=== PATIENT | female | born 1945 | race Caucasian/White ===

== ENCOUNTER → 2016-12-05 | Day surgery (SDC) | payer OTHER ==
[~2016-12-05] MED LIST: BUPIVACAINE HCL PF 0.5% 30 ML VIAL ONE; LACTATED RINGER'S 1000 ML INJ 1,000 ML ONE; ONDANSETRON HCL 4 MG/2 ML VIAL IV PUSH ONE; PROPOFOL 200 MG/20 ML AMP IV ONE; ceFAZolin INJ 1,000 MG VIAL ONE
--- NOTE | 2016-12-06 07:29 | MP ---
cc: ALEKSEY NAVARRO DATE OF SURGERY 12/05/2016 PREOPERATIVE DIAGNOSIS Right olecranon fracture status post open reduction internal fixation with retained painful hardware. POSTOPERATIVE DIAGNOSES Right olecranon fracture status post open reduction internal fixation with retained painful hardware. PROCEDURE Removal of deep hardware right elbow. SURGEON Dr. Aleksey Navarro [employer] ANTOINE Yusuf ANESTHESIA General ESTIMATED BLOOD LOSS Less than 50 cc TOURNIQUET TIME 0 minutes COMPLICATIONS None JUSTIFICATION This patient is a 71-year-old female who sustained a previous injury to the right elbow with a displaced fracture of the olecranon. She underwent prior surgical open reduction, internal fixation. She has shown radiographic and clinical signs of healing, but complains of pain and prominence of the deep hardware. The patient was counseled as to the risks, benefits and alternatives to the above-named proposed surgical procedure. She did wish to proceed with surgery. PROCEDURE IN DETAIL A written consent was obtained. The patient identified, taken to the operating room, placed supine on the operating room table. General anesthesia was administered, as well as one gram of IV Ancef. The right upper tree prepped and draped using Isopropyl alcohol, Hibiclens solution and DuraPrep solution. After the appropriate time-out was performed, a longitudinal incision made over the posterior aspect the right elbow in line with the prior incision. Soft tissue was elevated off the deep [id number] tension band construct. Wire cutters were used to cut the tension band construct and all deep hardware was subsequently removed. The wound was thoroughly irrigated with sterile saline solution. Fluoroscopic imaging showed complete removal of hardware. The fracture appeared stable. The triceps tendon was repaired primarily with 0 Vicryl suture, subcutaneous layer with 3-0 Vicryl suture and skin was closed with Dermabond. A sterile dressing applied. The patient tolerated the procedure well with no intraoperative complications noted. MD JEAN Lemus/JC /1:46 PM /7:20 AM
== END | disposition home or self-care (01) ==
LOC: ESDC 11:46
PROVIDERS: ATTEND Orthopaedic Surgery Sports Medicine
DX: T84.84XA Pain due to internal orthopedic prosthetic devices, implants and grafts, initial encounter (principal)
CPT/HCPCS: 01740; 20680; 73070; 76000; J0690; J2405; J3010; J7120